=== PATIENT | female | born 1990 | race Caucasian/White ===

== ENCOUNTER 2018-10-25 10:47 | Emergency (ER) | payer OTHER ==
[~2018-10-25] VITALS: Ht 160 cm; Wt 85.0 kg
[2018-10-25 10:55] VITALS: BP 120/76
[2018-10-25] MEDS ORDERED: KETOROLAC 30 MG/ML VIAL IM ONE (11:30)
[2018-10-25 12:46] VITALS: BP 122/75
== END 2018-10-25 12:47 | disposition home or self-care (01) ==
LOC: EDBD 10:47 → MED 10:47
DX: S20.20XA Contusion of thorax, unspecified, initial encounter (principal); F12.90 Cannabis use, unspecified, uncomplicated; Z90.49 Acquired absence of other specified parts of digestive tract; W22.8XXA Striking against or struck by other objects, initial encounter; Y93.89 Activity, other specified; Y92.832 Beach as the place of occurrence of the external cause; Y99.8 Other external cause status
CPT/HCPCS: 71046; 81025; 96372; 99283; J1885